=== PATIENT | female | born 1930 | race Caucasian/White ===

== ENCOUNTER 2018-04-15 23:27 | Emergency (ER) | payer OTHER ==
[~2018-04-15] VITALS: Ht 160 cm; Wt 67.9 kg
[2018-04-15 23:35] VITALS: TEMP 36.5; Ht 160 cm; Wt 67.9 kg
--- NOTE | 2018-04-16 00:31 | EMERGENCY ROOM VISIT NOTE ---
History Report prepared by Marine: Carlo Barton Under the Supervision of: Dr. Dc Powell M.D. First contact with patient: 23:40 Chief Complaint: FALL Stated Complaint: FELL, POSSIBLE BROKEN NOSE History of Present Illness The patient is an 87 year old female who presents to the Emergency Room with complaints of constant knee pain following a fall occurring today. Per daughter , the patient's fall was witnessed on a house security camera. She notes that it looked like the patient got up from the couch, and then fell forward over the coffee table. She reports that the patient then landed on her knees on the hardwood floor. She states that the patient was able to get up after she fell and has been able to walk. She notes that she has a previous history of arthritis in her knees, and she reports that the patient received steroid shots a few days ago. She states that there was a lot of blood on the ground and she notes that the patient's nose was bleeding when they arrived home. The patient denies any hip pain and abdominal pain. HPI limited secondary to dementia. Source of History: patient, family (daughter) History Limited By: dementia Onset: today Position: knee (bilateral) Timing: constant Associated Symptoms: No abdominal pain Note: Per daughter, the patient's nose was bleeding. The patient denies any hip pain. Review of Systems See HPI for pertinent positives & negatives. A total of 10 systems reviewed and were otherwise negative. Past Medical & Surgical Medical Problems: (1) Arthritis Family History No pertinent family history stated. Social History Smoking Status: Former Smoker Marital Status: Occupation Status: retired Allergies Coded Allergies: No Known Allergies (Unverified , 04/15/18) Physical Exam Vital Signs Date Time Temp Pulse Resp B/P (MAP) Pulse Ox O2 Delivery O2 Flow Rate FiO2 04/16/18 01:40 71 16 165/84 98 Room Air 04/16/18 01:04 71 04/16/18 01:03 98 Room Air 04/15/18 23:35 36.5 76 20 163/84 92 Room Air Physical Exam GENERAL: Awake, alert, well-appearing, in no acute distress HENT: Normocephalic, atraumatic. Oropharynx unremarkable. Nares clear, no blood in back of throat. EYES: Normal conjunctiva. Sclera non-icteric. NECK: Supple. No nuchal rigidity. FROM. No JVD. RESPIRATORY: Clear to auscultation. CARDIAC: Regular rate, normal rhythm. Extremities warm and well perfused. Pulses equal. ABDOMEN: Soft, non-distended. No tenderness to palpation. No rebound or guarding. No masses. RECTAL: Deferred. MUSCULOSKELETAL: Chest examination reveals no tenderness. The back is symmetrical on inspection without obvious abnormality. There is no CVA tenderness to palpation. No joint edema. LOWER EXTREMITIES: Calves are equal size bilaterally and non-tender. No edema. No discoloration. 2 in x 2 in fresh contusion to left knee cap. NEURO: Normal sensorium. No sensory or motor deficits noted. SKIN: No rash or jaundice noted. Medical Decision & Procedures ER Provider Diagnostic Interpretation: Radiology results as stated below per my review and interpretation: 1 VIEW CHEST X-RAY: Chronic changes noted. No evidence of pneumonia, congestion, pneumothorax, and fractures. LEFT KNEE X-RAY: No fractures, dislocations, or subluxations. RIGHT KNEE X-RAY: No fractures, dislocations, or subluxations. PELVIS X-RAY: No fractures, dislocations, or subluxations. Radiology results as stated below per my review and radiologist interpretation: CT FACIAL: Nondisplaced fracture of the right nasal bone and mid nasal bone. No other fractures. Periapical lucencies in the left maxillary central incisor and right lateral incisor could indicate dental abscesses. Radiologist: Michael Barrett MD. CT HEAD: No acute intracranial hemorrhage or extra-axial fluid collection. No calvarial fractures. Radiologist: Michael Barrett MD. Laboratory Results 04/16/18 01:00 Red Blood Count 4.27, Mean Corpuscular Volume 89.5, Mean Corpuscular Hemoglobin 29.5, Mean Corpuscular Hemoglobin Concent 33.0, Mean Platelet Volume 9.7, Neutrophils (%) (Auto) 57.0, Lymphocytes (%) (Auto) 35.0, Monocytes (%) (Auto) 6.0, Eosinophils (%) (Auto) 1.7, Basophils (%) (Auto) 0.3, Neutrophils # (Auto) 5.12, Lymphocytes # (Auto) 3.14, Monocytes # (Auto) 0.54, Eosinophils # (Auto) 0.15, Basophils # (Auto) 0.03 04/16/18 01:00 Test 04/16/18 00:58 04/16/18 01:00 Bedside Glucose 123 mg/dl (70-90) White Blood Count 8.98 K/uL (4.8-10.8) Red Blood Count 4.27 M/uL (4.2-5.4) Hemoglobin 12.6 g/dL (12.0-16.0) Hematocrit 38.2 % (37-47) Mean Corpuscular Volume 89.5 fL (80-100) Mean Corpuscular Hemoglobin 29.5 pg (25-34) Mean Corpuscular Hemoglobin Concent 33.0 g/dl (32-36) Platelet Count 224 K/uL (130-400) Mean Platelet Volume 9.7 fL (7.4-10.4) Neutrophils (%) (Auto) 57.0 % Lymphocytes (%) (Auto) 35.0 % Monocytes (%) (Auto) 6.0 % Eosinophils (%) (Auto) 1.7 % Basophils (%) (Auto) 0.3 % Neutrophils # (Auto) 5.12 K/uL (1.4-6.5) Lymphocytes # (Auto) 3.14 K/uL (1.2-3.4) Monocytes # (Auto) 0.54 K/uL (0.11-0.59) Eosinophils # (Auto) 0.15 K/uL (0-0.5) Basophils # (Auto) 0.03 K/uL (0-0.2) RDW Standard Deviation 41.1 fL (36.4-46.3) RDW Coefficient of Variation 12.7 % (11.5-14.5) Immature Granulocyte % (Auto) 0.0 % Immature Granulocyte # (Auto) 0.00 K/uL (0.00-0.02) Anion Gap 8.0 mmol/L (3-11) Est Creatinine Clear Calc Drug Dose 47.3 ml/min Estimated GFR () 78.6 Estimated GFR (Non- 67.8 BUN/Creatinine Ratio 34.7 (10-20) Calcium Level 8.6 mg/dl (8.5-10.1) Total Bilirubin 0.7 mg/dl (0.2-1) Direct Bilirubin 0.2 mg/dl (0-0.2) Aspartate Amino Transf (AST/SGOT) 14 U/L (15-37) Alanine Aminotransferase (ALT/SGPT) 23 U/L (12-78) Alkaline Phosphatase 60 U/L (45-117) Total Protein 6.6 gm/dl (6.4-8.2) Albumin 3.6 gm/dl (3.4-5.0) Labs reviewed by ED physician. ED Course 0027: Past medical records reviewed. The patient was evaluated in room B3. A complete history and physical examination was performed. 0148: Upon reexamination the patient is stable. I discussed results and treatment plan with the patient. She verbalizes agreement and understanding. The patient is ready for discharge. Medical Decision Differential diagnosis: Etiologies such as fracture, dislocation, intra-abdominal, pneumothorax, intrathoracic , intracranial, neurologic, as well as other traumatic pathologies were entertained. This is an 87-year-old female that presents emergency department during a period of high volume and high acuity complaining of fall at home. Upon arrival to the emergency department the patient is complaining of a contusion to her left knee. The patient also had a nosebleed however she currently is not bleeding. Family is concerned that the patient may have lost a significant amount of blood. For this reason an IV was established and his CBC was checked. Patient's hemoglobin was found to be stable at 12.6. X-rays of the knees pelvis and chest do not show any evidence of fracture dislocation or subluxation. CAT scan of the head and face is only concerning for broken nasal bone. Based on these findings I feel the patient can be safely discharged home. Family does not wish was to get a urine sample. She was ambulated by nursing staff and felt to do very well. She was released to her family. Medication Reconcilliation Current Medication List: was personally reviewed by me Blood Pressure Screening Patient's blood pressure: Elevated blood pressure Blood pressure disposition: Referred to PCP Impression Primary Impression: Fall Additional Impressions: Epistaxis Knee contusion Scribe Attestation The scribe's documentation has been prepared under my direction and personally reviewed by me in its entirety. I confirm that the note above accurately reflects all work, treatment, procedures, and medical decision making performed by me. Departure Information Dispostion Home / Self-Care Referrals Sawyer Samaniego M.D. (PCP) Forms HOME CARE DOCUMENTATION FORM, IMPORTANT VISIT INFORMATION Patient Instructions My [facility] Additional Instructions Follow up with Dr Soto's office for continued knee pain Take 1000 mg Tylenol for pain You have been examined and treated today on an emergency basis only. This is not a substitute for, or an effort to provide, complete comprehensive medical care. It is impossible to recognize and treat all injuries or illnesses in a single emergency department visit. It is therefore important that you follow up closely with Dr Samaniego. Call as soon as possible for an appointment. Thank you for your time and consideration. I look forward to speaking with you again soon. Please don't hesitate to call us if you have any questions. Problem Qualifiers Primary Impression: Fall Encounter type: initial encounter Qualified Codes: W19.XXXA - Unspecified fall, initial encounter Additional Impressions: Knee contusion Encounter type: initial encounter Laterality: left Qualified Codes: S80.02XA - Contusion of left knee, initial encounter
[2018-04-16 01:03] VITALS: O2SAT 98
[2018-04-16 01:13] LABS: BASO % 0.3 %; BASO ABS # 0.03 K/uL (0-0.2); EOS % 1.7 %; EOS ABS # 0.15 K/uL (0-0.5); HEMATOCRIT 38.2 % (37-47); HEMOGLOBIN 12.6 g/dL (12.0-16.0); LYMPH ABS # 3.14 K/uL (1.2-3.4); MEAN CELL VOLUME 89.5 fL (80-100); MEAN CORPUSCULAR HEMOGLOBIN 29.5 pg (25-34); MEAN PLATELET VOLUME 9.7 fL (7.4-10.4); MONO ABS # 0.54 K/uL (0.11-0.59); NEUT ABS # 5.12 K/uL (1.4-6.5); PLATELET COUNT 224 K/uL (130-400); RED CELL DISTRIBUTION WIDTH CV 12.7 % (11.5-14.5); RED CELL DISTRIBUTION WIDTH SD 41.1 fL (36.4-46.3); WHITE BLOOD COUNT 8.98 K/uL (4.8-10.8)
[2018-04-16 01:40] VITALS: BP 165/84; PULSE 71; O2SAT 98
[2018-04-16 01:42] LABS: ALBUMIN 3.6 gm/dl (3.4-5.0); CALCIUM 8.6 mg/dl (8.5-10.1); CREATININE 0.79 mg/dl (0.60-1.20); POTASSIUM 4.2 mmol/L (3.5-5.1); TOTAL PROTEIN 6.6 gm/dl (6.4-8.2)
--- NOTE | 2018-04-16 07:12 | DIAGNOSTIC IMAGING REPORT ---
RIGHT KNEE 2 VIEWS CLINICAL HISTORY: Fall with right knee pain. FINDINGS: AP and crosstable lateral views of the right knee are obtained. No prior studies are available for comparison at the time of dictation. The skeletal structures are osteopenic. No fracture is seen. There is moderate tricompartmental degenerative joint space narrowing, greatest in the medial and patellofemoral compartments. There are patellar enthesophytes, marginal osteophytes, and degenerative beaking of the tibial spine. No joint effusion is identified. Mild soft tissue swelling is seen along the medial aspect of the knee. IMPRESSION: 1. Mild soft tissue swelling with no radiographic evidence of acute fracture. 2. Osteopenia and degenerative change as above. Electronically signed by: Clement Becker M.D. 04/16/2018 7:10 AM Dictated Date/Time: 04/16/2018 7:09 AM
--- NOTE | 2018-04-16 07:13 | DIAGNOSTIC IMAGING REPORT ---
LEFT KNEE 2 VIEWS CLINICAL HISTORY: Fall with left knee pain. FINDINGS: AP and crosstable lateral views of the left knee are obtained. No prior studies are available for comparison at the time of dictation. The skeletal structures are osteopenic. No fracture is seen. There is moderate tricompartmental degenerative joint space narrowing, greatest in the medial and patellofemoral compartments. There are patellar enthesophytes, marginal osteophytes, and degenerative beaking of the tibial spine. No large joint effusion is identified. Mild soft tissue swelling is noted. IMPRESSION: 1. Mild soft tissue swelling with no radiographic evidence of acute fracture. 2. Osteopenia and degenerative change as above. Electronically signed by: Clement Becker M.D. 04/16/2018 7:12 AM Dictated Date/Time: 04/16/2018 7:10 AM
--- NOTE | 2018-04-16 07:14 | DIAGNOSTIC IMAGING REPORT ---
SINGLE VIEW CHEST CLINICAL HISTORY: Fall. FINDINGS: An AP, portable, upright chest radiograph is obtained. No prior studies are available for comparison at the time of dictation. The examination is degraded by portable technique and apical lordotic positioning. The cardiomediastinal silhouette is unremarkable noting atherosclerotic calcification of the thoracic aorta. The lungs and pleural spaces are clear. No pneumothorax is seen. The skeletal structures are osteopenic. The bony thorax is grossly intact. Degenerative change is seen throughout the thoracic spine. IMPRESSION: No acute cardiopulmonary abnormality. Electronically signed by: Clement Becker M.D. 04/16/2018 7:13 AM Dictated Date/Time: 04/16/2018 7:12 AM
--- NOTE | 2018-04-16 07:16 | DIAGNOSTIC IMAGING REPORT ---
SINGLE VIEW PELVIS CLINICAL HISTORY: Fall. FINDINGS: An AP pelvic radiograph is obtained. No prior studies are available for comparison at the time of dictation. The skeletal structures are osteopenic. There is no radiographic evidence of acute fracture involving the hips or bony pelvis. Mild to moderate arthritic change and joint space narrowing is present in the hips. Enthesophytes arise from the anterior superior iliac spine bilaterally. Sclerotic degenerative change is noted in the sacroiliac joints and symphysis pubis. Moderate to advanced lumbosacral spondylosis is partially visualized. No bowel obstruction is seen. Moderate colonic fecal retention is observed. The overlying soft tissues are within normal limits. IMPRESSION: Osteopenia and degenerative change as above. No acute fracture is identified. Electronically signed by: Clement Becker M.D. 04/16/2018 7:14 AM Dictated Date/Time: 04/16/2018 7:13 AM
--- NOTE | 2018-04-16 07:19 | DIAGNOSTIC IMAGING REPORT ---
CT OF THE HEAD WITHOUT CONTRAST CLINICAL HISTORY: Fall. COMPARISON STUDY: No previous studies for comparison. TECHNIQUE: Helical axial images of the head were obtained without IV contrast. Automated exposure control was utilized for the study. A dose lowering technique was utilized adhering to the principles of ALARA. FINDINGS: No acute intracranial hemorrhage, midline shift or mass effect is present. Mild atrophy is noted. Ventricular system is unremarkable. Basilar cisterns are patent. There are no extra axial collections. White matter hypodensities suggest mild small vessel disease. There is no calvarial fracture. Nasal bone fracture is better depicted on the maxillofacial CT. Please see that report for further description. Scattered venous gas is incidentally noted. IMPRESSION: 1. No acute intracranial findings. 2. No calvarial fracture. Electronically signed by: Boris Fernandez M.D. 04/16/2018 7:18 AM Dictated Date/Time: 04/16/2018 7:16 AM
--- NOTE | 2018-04-16 07:24 | DIAGNOSTIC IMAGING REPORT ---
MAXILLOFACIAL CT WITHOUT CONTRAST CLINICAL HISTORY: Fall, epistaxis. COMPARISON STUDY: None. TECHNIQUE: A maxillofacial CT was performed without IV contrast. Coronal and sagittal reformats were viewed. A dose lowering technique was utilized adhering to the principles of ALARA. FINDINGS: There is no fracture within visualized portions of the upper cervical spine. Alignment of the temporomandibular joints is anatomic. Scattered venous gas is noted. Note is made of nondisplaced bilateral nasal bone fractures. Orbital floors are intact. Mild ethmoid sinus mucosal thickening is noted. IMPRESSION: Nondisplaced bilateral nasal bone fractures. Electronically signed by: Boris Fernandez M.D. 04/16/2018 7:23 AM Dictated Date/Time: 04/16/2018 7:18 AM
== END 2018-04-16 02:08 | disposition home or self-care (01) ==
LOC: C.EDB 23:28
DX: R04.0 Epistaxis (principal); S80.02XA Contusion of left knee, initial encounter; W18.30XA Fall on same level, unspecified, initial encounter; Y92.019 Unspecified place in single-family (private) house as the place of occurrence of the external cause; S02.2XXA Fracture of nasal bones, initial encounter for closed fracture; M17.0 Bilateral primary osteoarthritis of knee; F03.90 Unspecified dementia, unspecified severity, without behavioral disturbance, psychotic disturbance, mood disturbance, and anxiety; Z87.891 Personal history of nicotine dependence